=== PATIENT | male | born 1945 | race Caucasian/White ===

== ENCOUNTER → 2024-06-11 | Outpatient (CLI) | payer MEDICARE, OTHER ==
[2024-06-11 14:48] LABS: Source, Urine Clean Catch
[2024-06-11 18:59] LABS: Appearance, Urine Turbid (Clear); Bilirubin, Urine Neg (Neg); Blood, Urine Neg (Neg); Color, Urine Yellow (P-Yellow); Glucose Qualitative, Urine Neg (Neg); Ketones, Urine Neg (Neg); Leukocyte Esterase, Urine Neg (Neg); Nitrite, Urine Neg (Neg); Protein, Urine 2+ (Neg); Specific Gravity, Urine 1.025 (1.003-1.022); Urobilinogen, Urine 2+ (Normal)
[2024-06-11 19:17] LABS: Bacteria Few /hpf; Red Blood Cells, Urine 0-2 /hpf (0-2); Squamous Epithelial Cells Rare /hpf (Few); White Blood Cells, Urine 0-2 /hpf (0-5)
[2024-06-11 19:18] LABS: Amorphous Heavy (0-Heavy); Calcium Oxalate Crystals Rare /hpf
== END ==
LOC: LAB SHORT 14:23 → LAB 14:23
PROVIDERS: Family Medicine
DX: R30.0 Dysuria (principal)
CPT/HCPCS: 81001

== ENCOUNTER 2024-10-08 07:09 | Day surgery (SDC) | payer MEDICARE, OTHER ==
[2024-10-08] VITALS (9 sets, daily range): BP systolic 129–164; BP diastolic 91–106
[~2024-10-08] VITALS: Ht 177.8 cm; Wt 85.2 kg
[~2024-10-08 07:09] MED LIST: ALBU2.5V5 INH; CATAPRES0.3 MG PO; FURO40 PO; Hytrin2 MG PO; Isosorbide Mono30 MG PO; LOSA50 PO; POTA10T PO; SPIR25 PO
[2024-10-08] MEDS ORDERED: Verapamil HCL 2.5 MG/ML 2ML Injection ONE (07:50)
[2024-10-08] MEDS ORDERED: Heparin Sodium 1000 Units/ML 10ML MDV ONE (07:51)
[2024-10-08] MEDS ORDERED: NS 250 ML IV ONE (07:51)
[2024-10-08] MEDS ORDERED: Nitroglycerin 2 MG/20 ML BTL ONE (07:51)
[2024-10-08] MEDS ORDERED: NS 1,000 ML IV ONE ×2 (07:51→08:22)
[2024-10-08] MEDS ORDERED: FentaNYL Citrate 50 MCG/ML 2 ML Injection ONE (08:38)
[2024-10-08] MEDS ORDERED: Midazolam HCl 1MG / ML 2ML Vial ONE (08:39)
[2024-10-08] MEDS ORDERED: ASPI81CH PO (09:46)
[2024-10-08] MEDS ORDERED: METO25ER PO (09:47)
--- NOTE | 2024-10-08 10:05 | NUR ---
PATIENT TO RECOVERY ROOM AT 0919 S/P CORONARY ANGIOGRAM. PATIENT AWAKE AND ALERT IN RECLINER, DENIES COMPLAINTS. RIGHT TR BAND SITE REVIEWED WITH BOLIVAR Cason SITE WNL, W/O SWELLING, HEMATOMA, BLEEDING, OR TENDERNESS. WRIST IMMOBILIZER IN PLACE. MEDICATIONS REVIEWED WITH DR ODOM. PATIENT WAS PRESCRIBED ENTRESTO AND JARDIANCE; PHARMACY CALLED. PATIENT DID NOT SERVICES REP HE DOES NOT HAVE MEDICATION COVERAGE. THE OFFICE WILL WORK WITH PATIENT AND TRY AND GET HIM ASSISTANCE FOR MEDIACTIONS, DR ODOM UPDATED. PATIENT TO START ASPIRIN 81MG DAILY, PT DECLINES HAVING IT CALLED IN, HE STATES HE WILL PICK IT UP. PATIENT HAS FOLLOW UP APPOINTMENT SCHEDULED.
--- NOTE | 2024-10-08 10:36 | NUR ---
AIR FROM TR BAND REMOVED SLOWLY OVER 30 MIN. LAST 3CC REMOVED AT 1040. SITE WNL, RIGHT RADIAL SITE WITHOUT HEMATOMA, SWELLING, BLEEDING, OR TENDERNESS. A TOTAL OF 250CC NS GIVEN PER DR ODOM. IV NOW S.L. PATIENT TOLERATED COFFEE, DECLINED MEAL/SNACK.
--- NOTE | 2024-10-08 12:01 | NUR ---
PATIENT OOB TO USE RESTROOM AND DRESS. RIGHT RADIAL SITE STABLE W/O CHANGES. TR BAND REMOVED, DRSG PLACED, WRIST IMMOBILIZER IN PLACE. IV DC'D INTACT. AWAITING PATIENTS . VSS
--- NOTE | 2024-10-08 12:20 | NUR ---
VERBAL AND WRITTEN DISCHARGE INSTRUCTIONS GIVEN TO PATIENT AND PT'S WITH CLEAR UNDERSTANDING. PATIENT DISCHARGE IN STABLE CONDITION AT 1220 VIA WHEELCHAIR. PATIENT DC'D IN CARE OF .
== END 2024-10-08 13:51 | disposition home or self-care (01) ==
LOC: MHTC 07:09
DX: I11.0 Hypertensive heart disease with heart failure (principal); I25.10 Atherosclerotic heart disease of native coronary artery without angina pectoris; I50.20 Unspecified systolic (congestive) heart failure; I27.20 Pulmonary hypertension, unspecified; E78.5 Hyperlipidemia, unspecified; N40.0 Benign prostatic hyperplasia without lower urinary tract symptoms; Z87.891 Personal history of nicotine dependence; Z79.899 Other long term (current) drug therapy; Z98.52 Vasectomy status
CPT/HCPCS: 76937; 93454; 99152; C1769; C1887; C1894; J1644; J2250; J3010; J7030; J7050; Q9967